=== PATIENT | female | born 1980 | race Caucasian/White ===

== ENCOUNTER 2019-04-17 11:46 | Emergency (ER) | payer SELFPAY ==
--- NOTE | 2019-04-17 11:55 | EDM.PDOC ---
ED HPI GENERAL MEDICAL PROBLEM - General Chief Complaint: Abdominal Pain Stated Complaint: Abdominal pain Time Seen by Provider: 04/17/19 11:46 Source of Information: Reports: Patient, Family History Limitations: Reports: No Limitations - History of Present Illness INITIAL COMMENTS - FREE TEXT/NARRATIVE: Patient to the emergency department complaining of right lower mid abdominal pain for an hour and a half. The patient advises that she does have a history of hernias and this is a typical area where her hernia is. The patient advises that she has tried to reduce the hernia at home without success. The patient denies any nausea no vomiting. There is no redness or heat at the site of the hernia. The patient has no fever chills no other symptoms. Onset: Today Duration: Hour(s): (1-1/2 hours) Location: Reports: Abdomen Quality: Reports: Ache Severity: Severe Improves with: Reports: None Worsens with: Reports: None Associated Symptoms: Reports: No Other Symptoms. Denies: Chest Pain, Nausea/ Vomiting, Rash, Weakness Treatments [employer]: Reports: Other (see below) (Attempted to reduce the hernia at home without success) - Related Data Allergies Allergy/AdvReac Type Severity Reaction Status Date / Time No Known Allergies Allergy Verified 02/07/18 07:34 MDT Past Medical History Cardiovascular History: Reports: Hypertension - Past Surgical History Female Surgical History: Reports: Section Social & Family History - Family History Cardiac: Reports: Hypertension - Tobacco Use Tobacco Use Within Last Twelve Months: No - Alcohol Use Alcohol Use in Last Twelve Months: No - Living Situation & Occupation Living situation: Reports: with Family ED ROS GENERAL - Review of Systems Review Of Systems: See Below Constitutional: Reports: No Symptoms. Denies: Fever, Chills HEENT: Reports: No Symptoms Respiratory: Reports: No Symptoms. Denies: Shortness of Breath Cardiovascular: Reports: No Symptoms. Denies: Chest Pain GI/Abdominal: Reports: Abdominal Pain. Denies: Nausea, Vomiting : Reports: No Symptoms Musculoskeletal: Reports: No Symptoms. Denies: Neck Pain, Back Pain Skin: Reports: No Symptoms Neurological: Reports: No Symptoms Psychiatric: Reports: No Symptoms ED EXAM, GI/ABD - Physical Exam Exam: See Below Exam Limited By: No Limitations General Appearance: Alert, WD/WN, Obese Ears: Normal External Exam Nose: Normal Inspection Throat/Mouth: Normal Inspection, Normal Voice, No Airway Compromise Head: Atraumatic, Normocephalic Neck: Normal Inspection, Supple, Non-Tender, Full Range of Motion Respiratory/Chest: No Respiratory Distress, Lungs Clear, Normal Breath Sounds Cardiovascular: Normal Peripheral Pulses, Regular Rate, Rhythm GI/Abdominal Exam: Normal Bowel Sounds, Soft, Hernia (Mid right ventral hernia that appears to be out.) Back Exam: Normal Inspection, Full Range of Motion Extremities: Normal Inspection, Normal Range of Motion, Non-Tender, Normal Capillary Refill Neurological: Alert, Oriented, Normal Cognition, Normal Gait, No Motor/Sensory Deficits Psychiatric: Normal Affect, Normal Mood Skin Exam: Warm, Dry, Intact, Normal Color Course - Vital Signs Text/Narrative:: The patient was evaluated in the emergency department. The patient was in supine position. The hernia in the right mid ventricle area is out, the abdominal tissue is not red is not hot there is no discoloration. Using distraction techniques with gentle pressure the hernia was easily reduced without any problems. The patient's pain immediately subsided. The patient was advised to follow-up with surgery this week for further evaluation and possible surgical intervention to help prevent this from happening in the past. The patient did advise that this happens frequently and usually she is able to reduce it at home but was not able to this time. Departure - Departure Time of Disposition: 11:55 Disposition: Home, Self-Care 01 Condition: Good Clinical Impression: Ventral hernia without obstruction or gangrene - Discharge Information *PRESCRIPTION DRUG MONITORING PROGRAM REVIEWED*: Not Applicable *COPY OF PRESCRIPTION DRUG MONITORING REPORT IN PATIENT LEOBARDO: Not Applicable Instructions: Hernia, Adult Additional Instructions: No heavy lifting or straining Follow-up with your family doctor/surgery this week for further evaluation and treatment and discussion of possible hernia repair options. Return emergency department as needed - Problem List & Annotations (1) Ventral hernia without obstruction or gangrene SNOMED Code(s): 886952873 Code(s): K43.9 - VENTRAL HERNIA WITHOUT OBSTRUCTION OR GANGRENE Status: Acute Priority: High - Problem List Review Problem List Initiated/Reviewed/Updated: Yes - Assessment/Plan Plan: As above
[2019-04-17 11:59] VITALS: PULSE 84
[2019-04-17 12:13] VITALS: BP 166/84
== END 2019-04-17 12:47 | disposition home or self-care (01) ==
LOC: CC.ED 11:46
DX: K43.9 Ventral hernia without obstruction or gangrene (principal); I10 Essential (primary) hypertension
CPT/HCPCS: 99283